=== PATIENT | male | born 1955 | race Asian ===

== ENCOUNTER 2022-02-12 04:18 | Emergency (ER) | payer OTHER ==
[~2022-02-12] VITALS: Ht 170.2 cm; Wt 77.1 kg
[~2022-02-12 04:18] MED LIST: ALLO100T PO
[2022-02-12 04:25] VITALS: BP_SYST 127
--- NOTE | 2022-02-12 04:25 | NUR ---
Patient triaged and placed in waiting room. VSS and patient appears in no acute distress at this time. Awaiting available bed, and MD notified of need for MSE.
--- NOTE | 2022-02-12 05:28 | NUR ---
DR Odell examining pt in the triage room.
[2022-02-12] MEDS ORDERED: HYDR30CR79 TP ×2 (05:40→06:21)
--- NOTE | 2022-02-12 06:34 | NUR ---
Patient given written and verbal discharge instructions and verbalizes understanding. ER MD discussed with patient the results and treatment provided. Patient in stable condition. ID arm band removed. Rx of Anusol given. Patient educated on pain management and to follow up with PMD. Pain Scale 0/10 . Opportunity for questions provided and answered. Medication side effect fact sheet provided.
[2022-02-12 06:37] VITALS: BP_SYST 122
== END 2022-02-12 06:37 | disposition home or self-care (01) ==
LOC: SED 04:18
DX: K64.4 Residual hemorrhoidal skin tags (principal); K62.5 Hemorrhage of anus and rectum; R19.7 Diarrhea, unspecified; Z79.899 Other long term (current) drug therapy
CPT/HCPCS: 99283

== ENCOUNTER 2022-02-15 18:36 | Inpatient (IN) | payer OTHER ==
[~2022-02-15] VITALS: Ht 170.2 cm; Wt 74.9 kg
[~2022-02-15 18:36] MED LIST changes: +HYDR30CR79 TP
[2022-02-15 18:58] VITALS: BP_SYST 115
--- NOTE | 2022-02-15 22:11 | NUR ---
Patient to ER bed 03 to gown for evaluation. Side rails up. Report given to Mone STACK.
[2022-02-15] MEDS ORDERED: NACL 0.9% 1,000 ML IV ONE (23:00)
[2022-02-15] MEDS ORDERED: PIPERACILLIN/TAZO 3.375 GM in NS 50 ML IV ONE (23:00)
[2022-02-15] MEDS ORDERED: PIPERACILLIN/TAZOBACTAM 3.375 GM/VIAL (ZOSYN) IV ONE (23:08)
--- NOTE | 2022-02-15 23:30 | NUR ---
# 20 gauge angiocath placed to L AC. Use of asceptic technique. Opsite placed over site. Blood return noted. Blood for lab drawn from site. Flushed with 10 cc of normal saline. No evidence of infiltration noted. Patient tolerated well.
--- NOTE | 2022-02-15 23:36 | NUR ---
PT AMBULATED TO RESTROOM
--- NOTE | 2022-02-15 23:38 | NUR ---
urine collected and walked to lab
[2022-02-15 23:46] LABS: BILIRUBIN,URINE NEGATIVE (NEGATIVE); BLOOD, URINE NEGATIVE (NEGATIVE); CLARITY/URINE CLEAR (CLEAR); COLOR,URINE YELLOW (YELLOW); GLUCOSE,URINE NEGATIVE (NEGATIVE); KETONES,URINE NEGATIVE (NEGATIVE); LEUKOCYTE ESTERASE ,URINE NEGATIVE (NEGATIVE); NITRITE, URINE NEGATIVE (NEGATIVE); PROTEIN URINE NEGATIVE (NEGATIVE); UROBILINOGEN,URINE 0.2 (0.2-1.0)
--- NOTE | 2022-02-16 | NUR ---
PT BIBS FROM HOME W C/O OF BRIGHT RED BLOOD IN WATER STOOL FOR 4 DAYS NOW. PT HAD 3 EPISODES TODAY OF BRIGHT RED BLOOD. PT DID STATE HE HAS A HISTORY OF HEMORRHOIDS AND HAS HAD SX FOR HEMORRHOIDS.
--- NOTE | 2022-02-16 | NUR ---
DENIES ANY ABDOMINAL PAIN, N/V, SOB OR CHEST PAIN. DOES ENDORSE PROGRESSIVE FEELING OF WEAKNESS.
[2022-02-16 00:41] LABS: BASOPHILS % (AUTO) 0.5 % (0.0-2.0); EOSINOPHILS # (AUTO) 0.1 K/uL (0.0-0.4); EOSINOPHILS % (AUTO) 1.9 % (0.0-4.0); HEMATOCRIT 37.8 % (36-54); HEMOGLOBIN 12.9 g/dL (14.0-18.0); LYMPHOCYTES # (AUTO) 1.7 K/uL (1.0-5.5); LYMPHOCYTES % (AUTO) 24.7 % (20.5-51.5); MEAN CORPUSCULAR HEMOGLOBIN 33 pg (27-31); MEAN CORPUSCULAR HGB CONC 34 % (32-36); MEAN CORPUSCULAR VOLUME 97 fL (79.0-98.0); MONOCYTES # (AUTO) 0.4 K/uL (0.0-1.0); MONOCYTES % (AUTO) 5.6 % (1.7-9.3); NEUTROPHILS # (AUTO) 4.6 K/uL (1.8-7.7); NEUTROPHILS % (AUTO) 67.3 % (40.0-70.0); PLATELET COUNT (AUTO) 242 K/uL (130-430); RED BLOOD CELL COUNT(AUTO) 3.91 MIL/uL (4.2-6.2); RED CELL DISTRIBUTION WIDTH 13.6 % (9.0-15.0); WHITE BLOOD COUNT (AUTO) 6.8 K/uL (4.8-10.8)
[2022-02-16 01:03] LABS: CREATININE 0.95 mg/dL (0.55-1.30)
[2022-02-16 01:24] LABS: ALBUMIN 3.7 g/dL (3.4-4.8); TOTAL BILIRUBIN 0.6 mg/dL (0.0-1.0)
--- NOTE | 2022-02-16 01:50 | NUR ---
PT AMBULATED TO RESTROOM
[2022-02-16] MEDS ORDERED: DUTA0.5C37 PO (02:02)
[2022-02-16] MEDS ORDERED: ALLO300T2 PO (02:02)
[2022-02-16] MEDS ORDERED: LOSA100T3 PO (02:02)
[2022-02-16] MEDS ORDERED: SILO4CAP PO (02:04)
--- NOTE | 2022-02-16 02:35 | NUR ---
MADE PT AWARE THAT THEY WILL BE ADMITTED. PT ACKNOWLEDGED
--- NOTE | 2022-02-16 03:05 | NUR ---
PT RESTING IN BED, NO ACUTE DISTRESS NOTED, VSS.
--- NOTE | 2022-02-16 03:40 | NUR ---
PT AMBULATED TO RESTROOM
--- NOTE | 2022-02-16 06:24 | NUR ---
Patient resting quietly. No acute distress noted. Vital signs within normal range.
--- NOTE | 2022-02-16 06:50 | NUR ---
Admit bed requested Patient will be admitted to care of Dr. JANE Cruz Admitted to MED SURG unit. Diagnosis GI BLEED Inpatient (Yes or No) YES Observation (Yes or No) NO Orientation concerns or request close to nursing station (Yes or No) NO Covid Status NEG On vent or bipap NEG Isolation requirements NO Needs a sitter NO From Home (Yes or if No enter name of facility) YES Requires Dialysis (Yes or No) NO Med Rec Completed (Yes of No) YES
--- NOTE | 2022-02-16 07:15 | NUR ---
RECEIVED PT FROM SEDA HARRISON. ASSUMED ALL CARE.
--- NOTE | 2022-02-16 07:57 | NUR ---
XENIA OBTAINED AND SAMPLE SENT TO LAB.
--- NOTE | 2022-02-16 09:26 | NUR ---
DR. LONGO AT BEDSIDE TO ASSESS PT. HE STATED PT WILL HAVE COLONOSCOPY TOMORROW-02/17/22.
[2022-02-16] MEDS ORDERED: BISACODYL 5 MG TABLET.DR (DULCOLAX) PO ONE (17:00)
[2022-02-16] MEDS ORDERED: GOLYTELY / COLYTE SOLUTION 4 LITERS PO ONE (18:00)
--- NOTE | 2022-02-16 18:36 | NUR ---
PT STARTED ON GOLYTELY. PT EDUCATED TO DRINK 8 OZ EVERY 10 MINUTES UNTIL COMPLETED.
--- NOTE | 2022-02-16 19:27 | NUR ---
ENDORSED PT TO SEDA ASTORGA. ALL QUESTIONS AND CONCERNS ADDRESSED.
--- NOTE | 2022-02-16 20:18 | NUR ---
Patient will be admitted to care of MD Freed. Admitted to MED SURG unit. Will go to room 114A. Complete and up to date summary report printed. SBAR report given at bedside to receiving SEDA Mays with opportunity for questions.
[2022-02-16 20:43] VITALS: BP_SYST 125
[2022-02-17 02:01] VITALS: BP_SYST 104
--- NOTE | 2022-02-17 04:09 | NUR ---
Consultation Paged Reason for Consultation: bloody diarrhea Was consult called: Y Person who was notified: Yi Consulting Physician: Dr. Lee Ordering Physician: Cristy Paredes
[2022-02-17 06:39] LABS: BASOPHILS % (AUTO) 0.7 % (0.0-2.0); EOSINOPHILS # (AUTO) 0.1 K/uL (0.0-0.4); EOSINOPHILS % (AUTO) 2.3 % (0.0-4.0); HEMATOCRIT 33.2 % (36-54); HEMOGLOBIN 11.5 g/dL (14.0-18.0); LYMPHOCYTES # (AUTO) 2.1 K/uL (1.0-5.5); LYMPHOCYTES % (AUTO) 32.9 % (20.5-51.5); MEAN CORPUSCULAR HEMOGLOBIN 33 pg (27-31); MEAN CORPUSCULAR HGB CONC 35 % (32-36); MEAN CORPUSCULAR VOLUME 96 fL (79.0-98.0); MONOCYTES # (AUTO) 0.4 K/uL (0.0-1.0); NEUTROPHILS # (AUTO) 3.6 K/uL (1.8-7.7); NEUTROPHILS % (AUTO) 57.1 % (40.0-70.0); PLATELET COUNT (AUTO) 233 K/uL (130-430); RED BLOOD CELL COUNT(AUTO) 3.47 MIL/uL (4.2-6.2); RED CELL DISTRIBUTION WIDTH 13.5 % (9.0-15.0); WHITE BLOOD COUNT (AUTO) 6.3 K/uL (4.8-10.8)
[2022-02-17 07:15] LABS: ALBUMIN 3.5 g/dL (3.4-4.8); CALCIUM 8.6 mg/dL (8.4-11.0); CREATININE 0.78 mg/dL (0.55-1.30); TOTAL BILIRUBIN 0.6 mg/dL (0.0-1.0)
[2022-02-17 07:32] LABS: INR 1.1 (0.80-1.20)
[2022-02-17 08:00] VITALS: BP_SYST 112
[2022-02-17] MEDS ORDERED: SIMETHICONE 40 MG/0.6 ML ML ONE (11:08)
[2022-02-17] MEDS: MEPERIDINE 100 MG INJ. 100 MG/ML VIAL ONE ×2 (11:27→11:30)
[2022-02-17] MEDS: MIDAZOLAM HCL 5 MG/5 ML VIAL ONE ×2 (11:27→11:30)
[2022-02-17 12:00] VITALS: BP_SYST 106
[2022-02-17 16:00] VITALS: BP_SYST 108
--- NOTE | 2022-02-17 21:19 | NUR ---
PATIENT HERE FOR COLONOSCOPY RETURNED PRIOR TO LUNCH AWAKE ALERT VS STABLE AFEBRILE ABLE TO EAT AND DRINK. REQUESTING TO TALK TO DOCTOR. PLANS TO BE DISCHARGED LATER TONIGHT. EXPLAINED NOTES FROM DR TO PATIENT ON PROCEDURE RESULTS
[2022-02-17 21:26] VITALS: BP_SYST 119
--- NOTE | 2022-02-17 22:05 | NUR ---
D/C Patient to home, picked up daughter via personal vehicle. Patient given medication reconciliation form and D/C instructions. Exit Care provided. Patient verbalized understanding. MD discussed with patient the results and treatment provided. Ambulatory with steady gait for discharge to home. Patient in stable condition, ID band removed. IV catheter removed, intact and dressing applied, no active bleeding. All belongings sent with patient. VSS. BP 119/75; NJ 76; RR 18; afebrile, denies any pain or discomfort. No s/s of active bleeding noted.
== END 2022-02-17 21:55 | disposition home or self-care (01) | DRG 378 ==
LOC: SED 18:36 → SMU 02-16 06:45
PROVIDERS: ADMIT Internal Medicine; ATTEND Internal Medicine
PROC: 0DBN8ZX Excision of Sigmoid Colon, Via Natural or Artificial Opening Endoscopic, Diagnostic (ICD-10-PCS; principal; 2022-02-17 12:30)
DX: K57.31 Diverticulosis of large intestine without perforation or abscess with bleeding (principal); R65.10 Systemic inflammatory response syndrome (SIRS) of non-infectious origin without acute organ dysfunction; K63.5 Polyp of colon; N40.0 Benign prostatic hyperplasia without lower urinary tract symptoms; M10.9 Gout, unspecified; I10 Essential (primary) hypertension; Z20.822 Contact with and (suspected) exposure to COVID-19; K64.8 Other hemorrhoids; Z87.19 Personal history of other diseases of the digestive system; Z90.49 Acquired absence of other specified parts of digestive tract
CPT/HCPCS: 36415; 45385; 71045; 76376; 80053; 81003; 83605; 85025; 85610-TC; 85730-TC; 86886; 86900; 86901; 87040; 88305; 93005; 99285; J1956; J2175; J2250; J2543

== ENCOUNTER 2022-02-22 15:39 | Inpatient (IN) | payer OTHER ==
[~2022-02-22] VITALS: Ht 170.2 cm; Wt 73.5 kg
[~2022-02-22 15:39] MED LIST changes: -ALLO100T PO; +ALLO300T2 PO; +DUTA0.5C37 PO; +LOSA100T3 PO; +SILO4CAP PO
[2022-02-22 16:18] VITALS: BP_SYST 128
[2022-02-22] MEDS ORDERED: PANTOPRAZOLE SODIUM 40 MG/VIAL (PROTONIX) IVP ONE (17:15)
[2022-02-22 18:03] LABS: BASOPHILS % (AUTO) 0.6 % (0.0-2.0); EOSINOPHILS # (AUTO) 0.2 K/uL (0.0-0.4); EOSINOPHILS % (AUTO) 2.4 % (0.0-4.0); HEMATOCRIT 32.8 % (36-54); HEMOGLOBIN 11.3 g/dL (14.0-18.0); LYMPHOCYTES % (AUTO) 24.8 % (20.5-51.5); MEAN CORPUSCULAR HEMOGLOBIN 33 pg (27-31); MEAN CORPUSCULAR HGB CONC 34 % (32-36); MEAN CORPUSCULAR VOLUME 96 fL (79.0-98.0); MONOCYTES # (AUTO) 0.4 K/uL (0.0-1.0); MONOCYTES % (AUTO) 5.2 % (1.7-9.3); NEUTROPHILS # (AUTO) 5.5 K/uL (1.8-7.7); PLATELET COUNT (AUTO) 275 K/uL (130-430); RED BLOOD CELL COUNT(AUTO) 3.41 MIL/uL (4.2-6.2); WHITE BLOOD COUNT (AUTO) 8.2 K/uL (4.8-10.8)
[2022-02-22 18:17] LABS: CALCIUM 9.3 mg/dL (8.4-11.0)
[2022-02-22 18:22] LABS: ALBUMIN 3.6 g/dL (3.4-4.8); TOTAL BILIRUBIN 0.3 mg/dL (0.0-1.0)
[2022-02-22 18:26] LABS: PROTHROMBIN TIME 10.3 SECS (9.5-12.5)
[2022-02-22] MEDS ORDERED: DUTA0.5C PO (18:46)
[2022-02-22] MEDS ORDERED: SILO8CAP5 PO (18:46)
[2022-02-22] MEDS ORDERED: LOSA100T3 PO (18:46)
[2022-02-22] MEDS ORDERED: ALLO100T PO (18:46)
[2022-02-22] MEDS: D5/0.45 NS 1,000 ML IV SCH (20:26)
[2022-02-22 21:16] VITALS: BP_SYST 93
[2022-02-23] VITALS: BP_SYST 91
[2022-02-23 08:00] VITALS: BP_SYST 100
[2022-02-23 11:58] LABS: BASOPHILS % (AUTO) 0.7 % (0.0-2.0); EOSINOPHILS # (AUTO) 0.2 K/uL (0.0-0.4); EOSINOPHILS % (AUTO) 2.8 % (0.0-4.0); HEMATOCRIT 32.6 % (36-54); HEMOGLOBIN 11.2 g/dL (14.0-18.0); LYMPHOCYTES % (AUTO) 35.8 % (20.5-51.5); MEAN CORPUSCULAR HEMOGLOBIN 33 pg (27-31); MEAN CORPUSCULAR HGB CONC 34 % (32-36); MEAN CORPUSCULAR VOLUME 96 fL (79.0-98.0); MONOCYTES # (AUTO) 0.4 K/uL (0.0-1.0); MONOCYTES % (AUTO) 6.7 % (1.7-9.3); PLATELET COUNT (AUTO) 282 K/uL (130-430); RED CELL DISTRIBUTION WIDTH 13.9 % (9.0-15.0); WHITE BLOOD COUNT (AUTO) 5.6 K/uL (4.8-10.8)
[2022-02-23 12:05] VITALS: BP_SYST 101
[2022-02-23 12:15] LABS: CALCIUM 8.4 mg/dL (8.4-11.0); CREATININE 0.89 mg/dL (0.55-1.30)
[2022-02-23] MEDS: D5/0.45 NS 1,000 ML IV SCH (16:15)
[2022-02-23 16:30] VITALS: BP_SYST 108
[2022-02-23 20:00] VITALS: BP_SYST 111
[2022-02-24 00:21] VITALS: BP_SYST 92
[2022-02-24 06:59] LABS: BASOPHILS % (AUTO) 0.6 % (0.0-2.0); EOSINOPHILS # (AUTO) 0.2 K/uL (0.0-0.4); EOSINOPHILS % (AUTO) 4.2 % (0.0-4.0); HEMATOCRIT 32.2 % (36-54); LYMPHOCYTES # (AUTO) 1.6 K/uL (1.0-5.5); LYMPHOCYTES % (AUTO) 31.5 % (20.5-51.5); MEAN CORPUSCULAR HEMOGLOBIN 33 pg (27-31); MEAN CORPUSCULAR HGB CONC 34 % (32-36); MEAN CORPUSCULAR VOLUME 96 fL (79.0-98.0); MONOCYTES # (AUTO) 0.3 K/uL (0.0-1.0); MONOCYTES % (AUTO) 6.9 % (1.7-9.3); NEUTROPHILS # (AUTO) 2.9 K/uL (1.8-7.7); NEUTROPHILS % (AUTO) 56.8 % (40.0-70.0); PLATELET COUNT (AUTO) 263 K/uL (130-430); RED BLOOD CELL COUNT(AUTO) 3.35 MIL/uL (4.2-6.2); RED CELL DISTRIBUTION WIDTH 13.7 % (9.0-15.0)
[2022-02-24 07:31] LABS: CALCIUM 8.8 mg/dL (8.4-11.0); CREATININE 0.83 mg/dL (0.55-1.30)
[2022-02-24] MEDS ORDERED: PANTOPRAZOLE SODIUM 40 MG/VIAL (PROTONIX) IVP SCH (09:00)
[2022-02-24 14:45] VITALS: BP_SYST 125
[2022-02-24 14:51] VITALS: BP_SYST 125
== END 2022-02-24 17:46 | disposition home or self-care (01) | DRG 394 ==
LOC: SED 15:39 → SMU 19:58
PROVIDERS: ADMIT Specialist; ATTEND Specialist
DX: K63.5 Polyp of colon (principal); D62 Acute posthemorrhagic anemia; M10.9 Gout, unspecified; I10 Essential (primary) hypertension; Z20.822 Contact with and (suspected) exposure to COVID-19; Z90.49 Acquired absence of other specified parts of digestive tract
CPT/HCPCS: 36415; 78278-TC; 80048; 80053; 85025; 85610-TC; 85730-TC; 86886; 86900; 86901; 87081; 96374; 99291; C9113